=== PATIENT | male | born 1970 | race Caucasian/White ===

== ENCOUNTER 2022-06-22 16:02 | Inpatient (IN) | payer SELFPAY ==
[2022-06-22] VITALS (7 sets, daily range): BP systolic 111–141; BP diastolic 57–89; PULSE 90–104; RESP 14–20; TEMP 36.7; O2SAT 90–94; BMI 27.0
[2022-06-22 16:58] LABS: Basophils % 0.3 %; Hematocrit 48.8 % (42.0-52.0); Hemoglobin 16.3 g/dL (11.7-16.6); Lymphocytes % 11.1 %; Mean Corpuscular HGB Conc 33.4 g/dL (30.0-36.0); Mean Corpuscular Volume 92.8 fl (80-94); Mean Platelet Volume 9.7 fL (7.4-10.4); Monocytes # 0.6 10^3/uL (0.2-0.9); Monocytes % 6.3 %; Neutrophils % 82.2 %; Nucleated Red Blood Cells % 0 %; Platelet Count 278 10^3/cmm (130-400); Red Blood Count 5.26 10^6/uL (4.1-5.3); Red Cell Distribution Width 13.5 % (12.1-15.1); White Blood Count 8.8 10^3/uL (4.0-10.0)
[2022-06-22 17:17] LABS: Alanine Aminotransferase 17 U/L (0-41); Albumin Level 4.4 g/dL (3.5-5.2); Alkaline Phosphatase 81 U/L (40-130); Anion Gap 15.6 (5-19); Aspartate Amino Transferase 13 U/L (0-40); Blood Urea Nitrogen 16 mg/dL (6-20); Calcium 9.1 mg/dL (8.5-10.5); Carbon Dioxide 24 mmol/L (22-29); Chloride 97 mmol/L (98-107); Globulin 3.3 g/dL (1.3-4.6); Glomerular Filtration Rate 77.9 mL/min (90-130); Glucose 140 mg/dL (65-115); Lipase 19 U/L (13-60); Osmolality Calculated 277 mOsm/kg (285-295); Potassium 4.6 mmol/L (3.5-5.1); Sodium 132 mmol/L (136-145); Total Bilirubin 0.5 mg/dL (0.15-1.2); Total Protein 7.7 g/dL (6.6-8.7)
--- NOTE | 2022-06-22 17:47 | XRR_ITS ---
PROCEDURE INFORMATION: Exam: XR Abdomen Exam date and time: 06/22/2022 6:17 PM Age: 52 years old Clinical indication: Abdominal pain; Generalized; Additional info: Constipation TECHNIQUE: Imaging protocol: Radiologic exam of the abdomen. Views: Frontal supine view of the abdomen. 1 View. COMPARISON: No relevant prior studies available. FINDINGS: Gastrointestinal tract: Increased fecal content in the colon. Nonobstructive bowel gas pattern. Intraperitoneal space: No free intraperitoneal air. Organs: No organomegaly. Bones/joints: Unremarkable. XR/XR KUB [id number] IMPRESSION: 1. Nonobstructed bowel gas pattern. 2. Increased fecal content in the colon.
--- NOTE | 2022-06-22 20:44 | ED_ITS ---
HPI - Abdominal Pain General: Chief Complaint: Abdominal Pain Stated Complaint: n/v, constipation Time Seen by Provider: 06/22/22 20:39 Source: patient Mode of arrival: ambulatory Limitations: no limitations History of Present Illness: 52-year-old male states he has been having abdominal pain since last night he states it is mainly suprapubic he states he been having hard time urinating as well and has had some constipation. States he woke up this morning at 3 AM with worsening pain along with vomiting throughout the day. He states he still feels like he cannot urinate and having severe pain in the suprapubic region he rates a 9 out of 10. Denies any fevers denies any worsening improving factors. Associated Symptoms: Reports constipation, nausea and vomiting; Denies chills, diarrhea and fever(s) Review of Systems Const: Denies: fever(s), chills, body aches or change in appetite Eyes: Denies: eye discomfort ENMT: Denies: throat pain or dental pain Card: Denies: chest pain Resp: Denies: dyspnea GI: Reports: abdominal pain, nausea, vomiting and constipation; Denies: diarrhea : Reports: difficulty urinating Musc: Denies: neck pain or back pain Skin/Breast: Denies: rash Neuro: Denies: headache(s) Psych: Denies: depression PFSH ED PFSH: Medical History (Updated 06/22/22 @ 22:55 by Viri Massey MD) No pertinent past medical history Social History (Updated 06/22/22 @ 20:46 by Viri Massey MD) Substance/Drug Use: never Physical Exam Const: COMMON NORMALS: no acute distress, patient oriented x3 and healthy appearing HENMT: COMMON NORMALS: normocephalic HEAD & SCALP: normocephalic Eye: COMMON NORMALS: conjunctivae normal CONJUNCTIVA: Yes conjunctivae normal Neck/C-Spine: COMMON NORMALS: supple Chest: COMMONS NORMALS: normal inspection of the chest and normal palpation of entire chest wall Resp: COMMON NORMALS: normal respiratory effort, No retractions, No use of accessory muscles and clear to auscultation bilaterally AUSCULTATION: clear to auscultation bilaterally Cardio: COMMON NORMALS: regular rate, regular rhythm and No murmurs present (Cardio) RATE: regular rate RHYTHM: regular rhythm GI: COMMON NORMALS: Normal to inspection, nondistended, normoactive bowel sounds present, Soft to palpation and no masses PALPATION: Yes Soft to palpation OTHER: Suprapubic tenderness Extremity: COMMON NORMALS: normal to inspection and full ROM Neuro: COMMON NORMALS: patient oriented x3, moves all extremities and no focal motor deficits Psych: COMMON NORMALS: mental status grossly normal, Normal thought process present and cooperative THOUGHT PROCESS: Normal thought process present Skin: COMMON NORMALS: no rashes or lesions noted and no wounds GENERAL SKIN EXAM: no rashes or lesions noted Course Vital Signs: Vital signs: Vital Signs Temperature 98.1 F 06/22/22 16:08 Pulse Rate 90 06/22/22 21:45 Respiratory Rate 18 06/22/22 21:23 Blood Pressure 125/83 06/22/22 21:45 Pulse Oximetry 93 06/22/22 21:45 Oxygen Delivery Me thod Room Air 06/22/22 21:45 MDM - Abdominal Pain Medical Decision Making Patient presents with abdominal pain and CT does show a cecal mass that is causing obstruction to his appendix with appendicitis with an abscess he has no free air in his abdomen does have a small possible localized perforation his white count has been normal has been afebrile I spoke to the surgeon on-call Dr. Benton with plans to admit on IV antibiotics likely have surgery in the morning. He has been stable on the ER. Lab Data 06/22/22 16:45 06/22/22 16:45 Labs/Radiology: Radiology Impressions KUB X-Ray 06/22/22 17:47 IMPRESSION: 1. Nonobstructed bowel gas pattern. 2. Increased fecal content in the colon. Abdomen/Pelvis CT 06/22/22 21:17 IMPRESSION: 1. 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 The cecal mass obstructs the appendiceal orifice with resulting marked appendicitis and associated suspicious for perforation of the anterior wall of the appendix at the appendiceal base with an adjacent developing multilobulated abscess in the right lower quadrant. No free intraperitoneal air. 2. Marked secondary inflammation of multiple small bowel loops/mesentery in the right lower quadrant. 3. Hypodense focus in the liver that cannot be further characterized on the current examination. In a low-risk patient, this is most likely to be benign and no further follow-up is recommended. In a high-risk patient, follow-up MRI in 3-6 months is recommended (or earlier if warranted by the patient's specific clinical circumstances). (Reference: Leonila) 4. Incidental/nonacute findings are listed in the report. COMMENTS: Consistent with the [employer]'s Incidental Findings Committee white paper (J Am Shalini Radiol 2018): Any incidental renal lesion less than 1 cm or classified as too small to characterize, or any incidental cystic renal lesion characterized as simple-appearing, is likely benign. No follow-up imaging is recommended for these lesions per consensus recommendations based on imaging criteria. REFERENCES: Leonila GARCIA, et al. Management of Incidental Liver Lesions on CT: A White Paper of the ACR Incidental Findings Committee. J Am Shalini Radiol. 2017;14(11):1857-7721. ADDENDUM: 06/22/22 2247 THIS REPORT CONTAINS FINDINGS THAT MAY BE CRITICAL TO PATIENT CARE. The findings were verbally communicated via telephone conference with VIRI Torres at 10:40 PM CDT on 06/22/2022. The findings were acknowledged and understood. Laboratory Results WBC 8.8 10^3/uL (4.0-10.0) 06/22/22 16:45 RBC 5.26 10^6/uL (4.1-5.3) 06/22/22 16:45 Hgb 16.3 g/dL (11.7-16.6) 06/22/22 16:45 Hct 48.8 % (42.0-52.0) 06/22/22 16:45 MCV 92.8 fl (80-94) 06/22/22 16:45 MCH 31.0 pg (28.0-34.0) 06/22/22 16:45 MCHC 33.4 g/dL (30.0-36.0) 06/22/22 16:45 RDW 13.5 % (12.1-15.1) 06/22/22 16:45 Plt Count 278 10^3/cmm (130-400) 06/22/22 16:45 MPV 9.7 fL (7.4-10.4) 06/22/22 16:45 Neut % (Auto) 82.2 % 06/22/22 16:45 Lymph % (Auto) 11.1 % 06/22/22 16:45 [place] % (Auto) 6.3 % 06/22/22 16:45 Eos % (Auto) 0.0 % 06/22/22 16:45 Baso % (Auto) 0.3 % 06/22/22 16:45 Neut # (Auto) 7.20 10^3/uL (1.8-7.7) 06/22/22 16:45 Lymph # (Auto) 1.0 10^3/uL (0.8-4.8) 06/22/22 16:45 [place] # (Auto) 0.6 10^3/uL (0.2-0.9) 06/22/22 16:45 Eos # (Auto) 0.0 10^3/uL (0.0-0.8) 06/22/22 16:45 Baso # (Auto) 0.0 10^3/uL (0.0-0.1) 06/22/22 16:45 Nucleated RBC % (auto) 0 % 06/22/22 16:45 Nucleated RBCs # 0.0 /100WBC 06/22/22 16:45 Sodium 132 mmol/L (136-145) L 06/22/22 16:45 Potassium 4.6 mmol/L (3.5-5.1) 06/22/22 16:45 Chloride 97 mmol/L (98-107) L 06/22/22 16:45 Carbon Dioxide 24 mmol/L (22-29) 06/22/22 16:45 Anion Gap 15.6 (5-19) 06/22/22 16:45 BUN 16 mg/dL (6-20) 06/22/22 16:45 Creatinine 1.0 mg/dL (0.7-1.2) 06/22/22 16:45 GFR Calculation 77.9 mL/min (90-130) L 06/22/22 16:45 Glucose 140 mg/dL (65-115) H 06/22/22 16:45 Calculated Osmolality 277 mOsm/kg (285-295) L 06/22/22 16:45 Calcium 9.1 mg/dL (8.5-10.5) 06/22/22 16:45 Total Bilirubin 0.5 mg/dL (0.15-1.2) 06/22/22 16:45 AST 13 U/L (0-40) 06/22/22 16:45 ALT 17 U/L (0-41) 06/22/22 16:45 Alkaline Phosphatase 81 U/L (40-130) 06/22/22 16:45 Total Protein 7.7 g/dL (6.6-8.7) 06/22/22 16:45 Albumin 4.4 g/dL (3.5-5.2) 06/22/22 16:45 Globulin 3.3 g/dL (1.3-4.6) 06/22/22 16:45 Lipase 19 U/L (13-60) 06/22/22 16:45 Urine Color Yellow (Yellow) 06/22/22 21:00 Urine Appearance Clear (CLEAR) 06/22/22 21:00 Urine pH 5 (5-7) 06/22/22 21:00 Ur Specific [place] 1.025 (1.005-1.030) 06/22/22 21:00 Urine Protein Neg (Negative) 06/22/22 21:00 Urine Glucose (UA) Norm (Normal) 06/22/22 21:00 Urine Ketones 2+ (Negative) H 06/22/22 21:00 Urine Blood 2+ (Negative) H 06/22/22 21:00 Urine Nitrate Negative (Negative) 06/22/22 21:00 Urine Bilirubin 1+ (Negative) H 06/22/22 21:00 Urine Urobilinogen Norm mg/dL (Negative) 06/22/22 21:00 Ur Leukocyte Esterase Negative (Negative) 06/22/22 21:00 Urine RBC 0-4 /hpf (0-2) H 06/22/22 21:00 Urine WBC 5-10 /hpf (0-5) H 06/22/22 21:00 Ur Squamous Epith Cells 0-4 /hpf (0-5) H 06/22/22 21:00 Amorphous Sediment Not Reportable 06/22/22 21:00 Urine Bacteria Trace /hpf (NONE) 06/22/22 21:00 Urine Mucus 1+ /hpf 06/22/22 21:00 Discharge Plan Discharge Patient Disposition: Admitted As Inpatient Clinical Impression: Acute appendicitis, Mass of cecum Coding Level of Care Code ED [employer] Producer for Britton Ceron
[2022-06-22] MEDS: ondansetron 2 mg/ML SDV 2 mL 4 MG IVP (21:03)
[2022-06-22] MEDS: sodium chloride 0.9% 1,000 ML 999 ML IV (21:04)
--- NOTE | 2022-06-22 21:17 | CTR_ITS ---
PROCEDURE INFORMATION: Exam: CT Abdomen And Pelvis With Contrast Exam date and time: 06/22/2022 10:00 PM Age: 52 years old Clinical indication: Abdominal pain; Generalized; Patient HX: C/O diffuse abd pain with constipation. TECHNIQUE: Imaging protocol: Computed tomography of the abdomen and pelvis with contrast. Sagittal and coronal reformatted images were created and reviewed. Radiation optimization: All CT scans at this facility use at least one of these dose optimization techniques: automated exposure control; mA and/or kV adjustment per patient size (includes targeted exams where dose is matched to clinical indication); or iterative reconstruction. Contrast material: OMNI 350; Contrast volume: 100 ml; Contrast route: INTRAVENOUS (IV); REPORTING DATA: Count of CT and Cardiac NM exams in prior 12 months: This patient has received 0 known CTs and 0 known cardiac nuclear medicine studies in the 12 months prior to the current study. COMPARISON: CR (ABDOMEN, ) 06/22/2022 6:17 PM RADIATION DOSE METRICS: Total DLP (mGy-cm): 921.63 FINDINGS: Lungs: Visualized lungs are clear. Pleural spaces: No pleural effusion. Heart: Visualized portions of the heart are unremarkable. Liver: Hypodense focus in the liver that cannot be further characterized on the current examination. This measures 6.2 mm (series 3, image 18). Gallbladder and bile ducts: The gallbladder is unremarkable. No biliary ductal dilatation. Pancreas: The pancreas is unremarkable. No pancreatic ductal dilatation. Spleen: The spleen is unremarkable. Adrenal glands: The right and left adrenal glands are unremarkable. Kidneys and ureters: Subcentimeter hypodense foci in both right and left kidneys that are too small to characterize, however likely represent small cysts. Simple cyst in the right kidney measuring 1.3 cm (series 3, image 35). The right and left ureters are unremarkable. Stomach and bowel: Irregular cecal mass measuring 4.7 x 3.9 x 4.9 cm (series 6, image 47, series 3, image 64 and series 5, image 19). The cecal mass also obstructs the appendiceal orifice. The appendix is markedly dilated, measuring 2.2 cm (series 3, image 72). The appendix is fluid-filled with thickening and enhancement of the wall of the appendix. Extensive periappendiceal inflammation and large amount of periappendiceal fluid. Focal decreased density of the appendiceal wall at the anterior base of the appendix (series 5, images 16-19). Partially loculated fluid collection anterior to the cecum and extending into the anterior right lower quadrant mesentery measures 9.9 x 2.5 x 5.6 cm (series 5, image 15, series 6, image 50, in series 3, image 70). Findings raise suspicion for perforation of the base of the appendix. secondary inflammation of multiple small bowel loops/mesentery in the right lower quadrant. Appendix: See under stomach and bowel . Intraperitoneal space: No free intraperitoneal air. See also under stomach and bowel . Vasculature: Minimal atherosclerotic changes in the visualized arteries. No evidence for aortic aneurysm or aortic dissection. Hepatic veins, portal veins, splenic vein, superior mesenteric vein, renal veins, and inferior vena cava are patent. Lymph nodes: No lymphadenopathy. Urinary bladder: The bladder is incompletely filled, which can limit evaluation. No focal abnormality in the bladder however. Reproductive: Unremarkable as visualized. Bones/joints: No acute fracture. Soft tissues: No acute abnormality in the extra-abdominal soft tissues. CT/CT abdomen pelvis w con* [id number] IMPRESSION: 1. 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 The cecal mass obstructs the appendiceal orifice with resulting marked appendicitis and associated suspicious for perforation of the anterior wall of the appendix at the appendiceal base with an adjacent developing multilobulated abscess in the right lower quadrant. No free intraperitoneal air. 2. Marked secondary inflammation of multiple small bowel loops/mesentery in the right lower quadrant. 3. Hypodense focus in the liver that cannot be further characterized on the current examination. In a low-risk patient, this is most likely to be benign and no further follow-up is recommended. In a high-risk patient, follow-up MRI in 3-6 months is recommended (or earlier if warranted by the patient's specific clinical circumstances). (Reference: Leonila) 4. Incidental/nonacute findings are listed in the report. COMMENTS: Consistent with the [employer]'s Incidental Findings Committee white paper (J Am Shalini Radiol 2018): Any incidental renal lesion less than 1 cm or classified as too small to characterize, or any incidental cystic renal lesion characterized as simple-appearing, is likely benign. No follow-up imaging is recommended for these lesions per consensus recommendations based on imaging criteria. REFERENCES: Leonila GARCIA, et al. Management of Incidental Liver Lesions on CT: A White Paper of the ACR Incidental Findings Committee. J Am Shalini Radiol. 2017;14(11):1026-0211.
[2022-06-22] MEDS: morphine 4 mg/mL SDV 1 mL IVP (21:23)
[2022-06-22 21:26] LABS: Urine Appearance Clear (CLEAR); Urine Color Yellow (Yellow)
[2022-06-22 21:27] LABS: Add Urine Culture? No; Add Urine Microscopic? YES; Bacteria Urine TRACE /hpf; Bilirubin Urine 1+ (Negative); Blood Urine 2+ (Negative); Glucose Urine UA Norm (Normal); Ketones Urine 2+ (Negative); Leukocyte Esterase Urine Negative (Negative); Mucus Urine 1+ /hpf; Nitrate Urine Negative (Negative); Protein Urine Neg (Negative); RBC Urine 0-4 /hpf (0-2); Specific Gravity, Urine 1.025 (1.005-1.030); Squamous Epithelial Cell Urine 0-4 /hpf (0-5); Urobilinogen Urine Norm (Negative); pH Urine 5 (5-7)
[2022-06-22] MEDS: iohexol 350 mg/mL 500 mL Btl (per mL) IV (22:02)
[2022-06-22] MEDS: HYDROmorphone 1 mg/mL INJ 1 mL IVP (22:54)
[2022-06-22] MEDS: piperacillin-tazobactam 3.375 GM in sodium chloride 0.9% (plus) 50 ML IV (22:56)
[2022-06-22 23:08] LABS: Lactate (Lactic Acid level) 1.6 mmol/L (0.5-2.2)
[2022-06-23] VITALS (21 sets, daily range): BP systolic 101–152; BP diastolic 63–89; PULSE 74–97; RESP 12–20; TEMP 36.2–37.6; O2SAT 89–97
[2022-06-23] MEDS: sodium chloride 0.9% 1,000 ML 75 ML IV (00:21)
[2022-06-23] MEDS: morphine 4 mg/mL SDV 1 mL IVP ×2 (00:26→04:34)
[2022-06-23] MEDS: ondansetron 2 mg/ML SDV 2 mL 4 MG IVP (01:06)
[2022-06-23 05:52] LABS: Hematocrit 43.5 % (42.0-52.0); Hemoglobin 14.5 g/dL (11.7-16.6); Mean Corpuscular HGB Conc 33.3 g/dL (30.0-36.0); Mean Corpuscular Hemoglobin 31.1 pg (28.0-34.0); Mean Corpuscular Volume 93.3 fl (80-94); Platelet Count 207 10^3/cmm (130-400); Red Blood Count 4.66 10^6/uL (4.1-5.3); Red Cell Distribution Width 13.7 % (12.1-15.1); White Blood Count 6.9 10^3/uL (4.0-10.0)
[2022-06-23] MEDS: piperacillin-tazobactam 3.375 GM in sodium chloride 0.9% (plus) 50 ML IV ×3 (06:27→23:21)
[2022-06-23 07:11] LABS: Absolute Segmented Neutrophil 2.6 10/cmm (1.6-7.1); Band Neutrophils Absolute 2.5 10^3/cmm (0.0-1.2); Lymphocytes 18 %; Monocytes Absolute 0.6 10^3/cmm (0.1-0.6); Segmented Neutrophils 37 %; Slide Review Slide Review Perform; Total Cells Counted 100 (0-100)
[2022-06-23 07:12] LABS: Eosinophils 0 %; Lymphocytes Absolute 1.2 10^3/cmm (1.2-3.4); Platelet Estimate Normal (Normal)
--- NOTE | 2022-06-23 07:18 | P.HP_ITS ---
Providers/Chief Complaint Admitting Physician: Kyle Benton DO Chief Complaint: n/v, constipation History of Present Illness Roni Salguero is a 52 year old male who presents to the hospital with a 2- day history of diffuse abdominal pain. He reports that his abdominal pain is all over but worse in the right lower quadrant. He reports that he has been constipated for several days. He reports fevers yesterday. Palpation makes his abdominal pain worse. Nothing makes his abdominal pain better. He denies any hematochezia and/or melena. CT of the abdomen pelvis reveals a large cecal mass with appendiceal perforation and abscess. There is also a mass in the liver which cannot be characterized. Review of Systems General: Reports: 10 or more systems reviewed and unremarkable except in HPI and below Medications/Allergies Allergies Allergy/AdvReac Type Severity Reaction Status Date / Time No Known Allergies Allergy Verified 06/22/22 16:12 PFSH Acute PFSH: Medical History No pertinent past medical history Social History Substance/Drug Use: never Vitals/I&O/Wt Last Vital Signs Temp 98.8 F 06/23/22 04:00 Pulse 88 06/23/22 04:00 Resp 16 06/23/22 04:34 BP 107/74 06/23/22 04:00 Pulse Ox 95 06/23/22 04:00 O2 Del Method Nasal Cannula 06/23/22 04:00 O2 Flow Rate 2 06/23/22 04:00 06/22/22 06/23/22 06/23/22 22:59 06:59 14:59 Intake Total 1050 / 1050 Output Total 300 / 300 Balance 750 / 750 Weight last 48 hrs Weight 216 lb Physical Exam Narrative: General : Patient is well developed , no acute distress, oriented x3 Head : Normal cephalic, a-traumatic. Ears : Pinnae and external canal are normal. Hearing is normal. Eyes : PERRLA, Sclera and injection are normal. No conjunctival discharge. Nose : Mucous membranes are without erythema. Throat : buccal mucosa is normal, gums are without significant recession or hypertrophy. Lungs : Equal chest rise bilaterally, no use of accessory muscles, trachea is midline. Cor : Rate and rhythm are normal. Abdomen : Soft, diffusely tender to palpation distended, some guarding present, negative rebound Extremities : No edema, no cyanosis or clubbing, dorsalis pedis pulses are present bilaterally, non-tender to palpation of calves. Upper extremities are normal bilaterally. Back : non-tender to palpation, no CVA tenderness. Neuro : CN II - XII intact, Upper and lower extremities have equal and full strength Urinary Catheter Management: Lee: Cath Placed During This Visit: yes, but has since been removed by the nurse Reason for Continuing Indwelling Catheter: Other Urinary Catheter Date of Insertion: 06/22/22 Urinary Catheter Time of Insertion: 21:06 Date Urinary Catheter Removed: 06/22/22 Time Urinary Catheter Discontinued: 21:30 Data 06/23/22 05:14 06/22/22 16:45 A&P Assessment and plan (1) Mass of cecum: (2) Acute perforated appendicitis: (3) Liver mass: Plan To OR for exploratory laparotomy with right hemicolectomy The risks and benefits of the procedure, including but not limited to, bleeding, infection, damage surrounding structures, scar, numbness, pain, possible need for a ostomy, anastomotic leak, were explained to the patient. He is understanding of the risks and wishes to proceed Attestations Medical Necessity Statement*: Patient will require multiple nights in the hospital following exploratory laparotomy with right hemicolectomy for cecal mass with perforated appendicitis Coding Level of Care Code Acute Code for Chg Fwd Diagnoses Mass of cecum K63.89 Acute perforated appendicitis K35.32 Liver mass R16.0
--- NOTE | 2022-06-23 09:12 | PC.PHAR ---
pt is in surgery per operating room aide on [facility]
--- NOTE | 2022-06-23 09:23 | P.ANESASSM_ITS ---
Pre-Anesthetic Assessment Height/Weight: Height 1.91 m Weight 97.976 kg Temp Pulse Resp BP Pulse Ox O2 Del Method O2 Flow Rate 98.3 F 88 18 117/74 91 Room Air 2 06/23/22 07:26 06/23/22 07:26 06/23/22 07:26 06/23/22 07:26 06/23/22 07:26 06/23/22 07:26 06/23/22 07:26 Operation Date: 06/23/22 08:25 Proposed Procedures p Exploratory Laparotomy(Not Applicable) - Kyle Benton DO Familial anesthetic complications: none Was Beta Sandeep taken within 24 hours: N/A Was Clonidine taken within 24 hours: N/A Social Tobacco and No alcohol Exam alert, oriented x 3 and regular rate & rhythm Airway Submandibular: within normal limits Cervical ROM: within normal limits Mallampati: Class II Dentition: false Pulmonary Chronic Obstructive Pulmonary Disease GI appe, cecal mall? Anesthetic Plan ASA status: 3 Anesthesia: General Medications/Allergies Allergies Allergy/AdvReac Type Severity Reaction Status Date / Time No Known Allergies Allergy Verified 06/22/22 16:12 Current Medications Generic Name Dose Route Start Last Admin Trade Name Freq PRN Reason Stop Dose Admin Sodium Chloride 1,000 mls @ 75 mls/hr 06/22/22 23:00 06/23/22 00:21 Sodium Chloride 0.9% IV 75 mls/hr .[id number] BECCA Administration Piperacillin Sod/Tazobactam 50 mls @ 12.5 mls/hr 06/23/22 07:00 06/23/22 06:27 Sod 3.375 gm/ Sodium Chloride IV 12.5 mls/hr Q8H BECCA Administration Protocol Morphine Sulfate 4 mg 06/23/22 00:06 06/23/22 04:34 Morphine 4 Mg/Ml Sdv 1 Ml IVP 4 mg Q4H PRN Administration SEVERE PAIN Ondansetron HCl 4 mg 06/23/22 00:06 06/23/22 01:06 Ondansetron 2 Mg/Ml Sdv 2 Ml IVP 4 mg Q6H PRN Administration NAUSEA AND VOMITING PFSH Anesthesia Medical History No pertinent past medical history Social History Substance/Drug Use: never Data Anesthesia 06/23/22 05:14 06/22/22 16:45 Short CBC 06/22/22 06/23/22 Range/Units 16:45 05:14 WBC 8.8 6.9 (4.0-10.0) 10^3/uL Hgb 16.3 14.5 (11.7-16.6) g/dL Hct 48.8 43.5 (42.0-52.0) % MCV 92.8 93.3 (80-94) fl Plt Count 278 207 (130-400) 10^3/cmm Neut % (Auto) 82.2 % Neut # (Auto) 7.20 (1.8-7.7) 10^3/uL BMP 06/22/22 16:45 Sodium 132 L Potassium 4.6 Chloride 97 L Carbon Dioxide 24 BUN 16 Creatinine 1.0 Glucose 140 H Calcium 9.1 Liver Function 06/22/22 Range/Units 16:45 Total Bilirubin 0.5 (0.15-1.2) mg/dL AST 13 (0-40) U/L ALT 17 (0-41) U/L Alkaline Phosphatase 81 (40-130) U/L Albumin 4.4 (3.5-5.2) g/dL Urine 06/22/22 Range/Units 21:00 Urine Color Yellow (Yellow) Urine Appearance Clear (CLEAR) Urine pH 5 (5-7) Ur Specific [place] 1.025 (1.005-1.030) Urine Protein Neg (Negative) Urine Glucose (UA) Norm (Normal) Urine Ketones 2+ H (Negative) Urine Nitrate Negative (Negative) Urine Bilirubin 1+ H (Negative) Ur Leukocyte Esterase Negative (Negative) Urine RBC 0-4 H (0-2) /hpf Urine WBC 5-10 H (0-5) /hpf Cardiac Studies: No Data to Display
--- NOTE | 2022-06-23 10:36 | PC.CHAP ---
Pastoral Care Encounter/Spiritual Assessment Type of Contact [] Declined infantryman visit [] Patient/Family/Request visit [] Outpatient visit [] Follow-up visit [] Physician referral [] Code/Alert [x] Routine visit [] Staff referral [] Actively dying [] Patient sleeping [x] Family support [] [] Out of room [] Palliative care [] [] Receiving care in room [] Pre-surgical visit [] Trauma [] Long length of stay [] ICU visit [] Other: Relational/Emotional Strength [x] Patient feels connected with others/family/visitors/staff [] Distress [] Loneliness/isolation [] Abandonment Spirituality of Patient [x] Person of [place]tagracia [x] Attends Jewish of their [place] [x] Believes in Prayer [x] Reads Bible or Congregation materials [] There are Spiritual issues to be addressed Trap Operator Interventions [x] Prayer [] Active listening [] Non-anxious presence [x] Spiritual/emotional support [] Crisis/trauma care [] Spiritual counseling [] Bereavement support [] Provided bereavement packet [] Provided Bible/devotional materials [] Provided toy/stuffed animal, coloring book to patient or family member [] Provided Communion [] Anointing/[place] [] Salvation [x] Completed spiritual assessment [] Other: Impact on Illness or Injury [] Angry [] Fearful [] Anxious [] Often cries [] Exhaustion [] Unable to work [] Unable to attend sabianist [] Unable to walk/stand [] Unable to read [] Unable to drive [] Unable to eat/drink [] Unable to sleep [] Unable to be with family [] Patient intubated [] Other: Summary Time spent with patient 10 min
--- NOTE | 2022-06-23 10:42 | PM.OP ---
Operative Report Date of procedure: June 23, 2022 Pre-op diagnosis: Cecal mass Acute perforated appendicitis Post-op diagnosis: same Procedure done: Exploratory laparotomy with right hemicolectomy Implants: 19 [place] drain into right colic gutter and pelvis Specimens removed/disposition: Right colon and terminal ileum Surgeon: Dr. Kyle Benton DO Anesthesia: General Estimated blood loss (mL): 100 Complications: None apparent Brief History: This is a very pleasant 52-year-old gentleman who presented to the hospital with a 2-day history of abdominal pain. CT abdomen and pelvis revealed a large cecal mass with a perforated appendicitis. There is also a liver mass which is hard to define. Exploratory laparotomy with right hemicolectomy was indicated. The risk and benefits were explained and documented. Procedure: Patient was wheeled in the OR room and placed on the OR table in the supine position. The abdomen was inspected prepped and draped in usual sterile fashion. A timeout was performed. All present were in agreement. General endotracheal intubation was achieved by department of anesthesia. A 10 blade scalpel was then used to make a midline laparotomy from the pubic symphysis to the xiphoid. Dissection was carried down to the fascia with Bovie cautery. The fascia was opened and the Bookwalter was put in place. The right lower quadrant had significant purulence which was suctioned. There was a very large appendix and right colon dilatation with overlying fibrinous exudate. The right white line of Toldt was taken down bluntly and sharply with Bovie cautery. Andrade's bands were taken down with Enseal. Dissection was carried around the hepatic flexure with Bovie cautery and Enseal. A small window was made in the mesentery just proximal to the middle colic artery. The terminal ileum was then brought up to this area and a small window was made in the mesentery. A [id number] functional end-to-end anastomosis was created with a CHRISTINA 100 blue load stapler with 2 loads. Mesentery was then transected across the right colic artery. The right colon with appendix and terminal ileum were then passed off as specimen. Loculations and adhesions from the perforation were bluntly with finger fracking. The abdomen was then irrigated with 2 L of normal saline. Hemostasis was noted. Blood loss was approximately 100 cc. A 19 [place] drain was then placed into the right colic gutter and pelvis coming out of the left lower quadrant and sewn into place with 3-0 silk. The NG tube was confirmed to be in place. The laparotomy incision was then closed at the fascia with running #1 PDS x2. Skin was closed with az. Sterile dressings were applied. Patient tolerated procedure well.
[2022-06-23] MEDS: ketorolac 30 mg/mL INJ IVP ×2 (14:45→20:51)
--- NOTE | 2022-06-23 14:46 | ANE.PACU2 ---
Inpatient post-anesthesia follow up: Airway intact: Yes Vital signs: Temperature 97.8 F Pulse Rate 77 Respiratory Rate 15 Blood Pressure 108/63 Pulse Oximetry 90 Oxygen Delivery Me thod Room Air Oxygen Flow Rate 6 Fraction of Inspir ed Oxygen Hydration adequate: Yes Nausea and vomiting: No Pain level: 4 Mental status: Baseline
[2022-06-23] MEDS: sodium chloride 0.9% 1,000 ML 125 ML IV ×2 (15:13→20:50)
--- NOTE | 2022-06-23 22:18 | XRR_ITS ---
PROCEDURE INFORMATION: Exam: XR Chest Exam date and time: 06/23/2022 9:27 PM Age: 52 years old Clinical indication: Device placement; Ng tube; Prior surgery; Surgery date: 6+ months; Surgery type: Abd surgery; Additional info: Ngt placement. TECHNIQUE: Imaging protocol: Radiologic exam of the chest. Views: 1 view. COMPARISON: CT abdomen pelvis w con* [id number] 06/22/2022 10:00 PM FINDINGS: Tubes, catheters and devices: Gastric tube placement with tip in the mid stomach. Lungs: Unremarkable. No consolidation. Pleural spaces: Unremarkable. No pleural effusion. No pneumothorax. Heart/Mediastinum: Unremarkable. No cardiomegaly. Bones/joints: Unremarkable. Soft tissues: Laparotomy skin az. XR/XR chest 1V portable [id number] IMPRESSION: 1. Gastric tube tip in the mid stomach. 2. No acute findings.
--- NOTE | 2022-06-23 22:24 | PC.NURSE ---
Pt's family came running to the nurses station stating the pt was choking. This nurse ran to the pt room. Pt sitting up in bed, states he think that his NG tube has migrated causing him to choke. Per protocol CXR ordered stat to check for placement. Radiology notified.
[2022-06-24] VITALS (7 sets, daily range): BP systolic 104–125; BP diastolic 67–74; PULSE 65–75; RESP 16–18; TEMP 36.3–37.1; O2SAT 89–96
[2022-06-24] MEDS: ketorolac 30 mg/mL INJ IVP ×4 (03:22→22:04)
[2022-06-24 04:54] LABS: Basophils % 0.2 %; Hematocrit 37.6 % (42.0-52.0); Hemoglobin 12.4 g/dL (11.7-16.6); Lymphocytes % 11.8 %; Mean Corpuscular Hemoglobin 31.2 pg (28.0-34.0); Mean Corpuscular Volume 94.5 fl (80-94); Mean Platelet Volume 9.7 fL (7.4-10.4); Monocytes # 0.7 10^3/uL (0.2-0.9); Monocytes % 8.8 %; Neutrophils # 6.44 10^3/uL (1.8-7.7); Nucleated Red Blood Cells % 0 %; Platelet Count 202 10^3/cmm (130-400); Red Blood Count 3.98 10^6/uL (4.1-5.3); Red Cell Distribution Width 13.5 % (12.1-15.1); White Blood Count 8.2 10^3/uL (4.0-10.0)
[2022-06-24 05:11] LABS: Anion Gap 14.2 (5-19); Blood Urea Nitrogen 24 mg/dL (6-20); Calcium 7.8 mg/dL (8.5-10.5); Carbon Dioxide 26 mmol/L (22-29); Chloride 99 mmol/L (98-107); Glomerular Filtration Rate 63.1 mL/min (90-130); Glucose 103 mg/dL (65-115); Magnesium 2.4 mg/dL (1.7-2.3); Osmolality Calculated 284 mOsm/kg (285-295); Potassium 4.2 mmol/L (3.5-5.1); Sodium 135 mmol/L (136-145)
[2022-06-24 05:30] LABS: Slide Review Slide Review Perform
[2022-06-24] MEDS: heparin 5,000 unit/mL INJ 1 mL 5000 UNIT SUBCUT ×2 (05:49→18:17)
[2022-06-24] MEDS: piperacillin-tazobactam 3.375 GM in sodium chloride 0.9% (plus) 50 ML IV ×3 (05:50→22:09)
[2022-06-24] MEDS: sodium chloride 0.9% 1,000 ML 125 ML IV ×3 (05:50→22:09)
[2022-06-24] MEDS: ondansetron 2 mg/ML SDV 2 mL 4 MG IVP ×3 (14:13→22:17)
--- NOTE | 2022-06-24 17:41 | PM.PN ---
Subjective Subjective: Patient seen and examined. Pain controlled. He is pulling 1500 on the incentive spirometer. Still no flatus. Vitals/I&O/Wt Last Vital Signs Temp 98.2 F 06/24/22 16:58 Pulse 73 06/24/22 16:58 Resp 17 06/24/22 16:58 BP 122/71 06/24/22 16:58 Pulse Ox 91 06/24/22 16:58 O2 Del Method Room Air 06/24/22 16:58 O2 Flow Rate 6 06/23/22 11:10 06/24/22 06/24/22 06/24/22 06:59 14:59 22:59 Intake Total 860.417 / 3972.500 1050 / 1050 Output Total 1045 / 1615 Balance -184.583 / 2357.500 1050 / 1050 Physical Exam Narrative: General: No acute distress, awake alert and oriented x3 Abdomen: Soft, mildly distended, appropriately tender to palpation, no guarding rebound or masses Dressings clean dry and intact Drain serosanguineous Urinary Catheter Management: Lee: Cath Placed During This Visit: yes, but has since been removed by the nurse Reason for Continuing Indwelling Catheter: Other Urinary Catheter Date of Insertion: 06/23/22 Urinary Catheter Time of Insertion: 09:40 Date Urinary Catheter Removed: 06/22/22 Time Urinary Catheter Discontinued: 21:30 Data 06/24/22 04:44 06/24/22 04:44 A&P Assessment and plan (1) Mass of cecum: (2) Acute perforated appendicitis: (3) Liver mass: Plan Postoperative day #1 status post exploratory laparotomy with right hemicolectomy IV fluids Antibiotics N.p.o./NG tube to LIWS I-S use Await return of bowel function Ambulate Attestations Medical Necessity Statement*: Patient requires multiple more nights in the hospital for recovery after right hemicolectomy Coding Level of Care Code Acute Code for Chg Fwd Diagnoses Mass of cecum K63.89 Acute perforated appendicitis K35.32 Liver mass R16.0
[2022-06-25] MEDS: ketorolac 30 mg/mL INJ IVP ×4 (03:06→20:55)
[2022-06-25 03:56] VITALS: BP 118/76; PULSE 70; RESP 18; TEMP 36.6; O2SAT 97
[2022-06-25] MEDS: heparin 5,000 unit/mL INJ 1 mL 5000 UNIT SUBCUT ×2 (05:40→18:15)
--- NOTE | 2022-06-25 05:52 | PC.NURSE ---
This nurse witnessed patient pass gas at 0542, 06/25/22.
[2022-06-25] MEDS: sodium chloride 0.9% 1,000 ML 125 ML IV ×3 (06:07→22:39)
[2022-06-25] MEDS: piperacillin-tazobactam 3.375 GM in sodium chloride 0.9% (plus) 50 ML IV ×3 (06:07→22:39)
[2022-06-25 06:11] LABS: Basophils % 0.1 %; Eosinophils # 0.1 10^3/uL (0.0-0.8); Eosinophils % 1.3 %; Hematocrit 35.6 % (42.0-52.0); Hemoglobin 11.7 g/dL (11.7-16.6); Lymphocytes # 1.1 10^3/uL (0.8-4.8); Lymphocytes % 12.3 %; Mean Corpuscular HGB Conc 32.9 g/dL (30.0-36.0); Mean Corpuscular Hemoglobin 30.7 pg (28.0-34.0); Mean Corpuscular Volume 93.4 fl (80-94); Mean Platelet Volume 9.9 fL (7.4-10.4); Monocytes # 0.7 10^3/uL (0.2-0.9); Monocytes % 8.3 %; Neutrophils # 6.93 10^3/uL (1.8-7.7); Neutrophils % 77.6 %; Nucleated Red Blood Cells % 0 %; Platelet Count 230 10^3/cmm (130-400); Red Blood Count 3.81 10^6/uL (4.1-5.3); Red Cell Distribution Width 13.7 % (12.1-15.1); White Blood Count 8.9 10^3/uL (4.0-10.0)
[2022-06-25 06:29] LABS: Anion Gap 13.8 (5-19); Blood Urea Nitrogen 23 mg/dL (6-20); Calcium 7.7 mg/dL (8.5-10.5); Carbon Dioxide 23 mmol/L (22-29); Chloride 104 mmol/L (98-107); Glomerular Filtration Rate 87.9 mL/min (90-130); Glucose 86 mg/dL (65-115); Magnesium 2.5 mg/dL (1.7-2.3); Osmolality Calculated 287 mOsm/kg (285-295); Potassium 3.8 mmol/L (3.5-5.1); Sodium 137 mmol/L (136-145)
--- NOTE | 2022-06-25 12:22 | PM.PN ---
Subjective Subjective: Patient seen and examined. Still no bowel movement Vitals/I&O/Wt Last Vital Signs Temp 99.6 F 06/26/22 19:43 Pulse 67 06/26/22 19:43 Resp 16 06/26/22 19:43 BP 133/74 06/26/22 19:43 Pulse Ox 92 06/26/22 19:43 O2 Del Method Room Air 06/26/22 19:43 O2 Flow Rate 6 06/23/22 11:10 Physical Exam Narrative: Abdomen soft, appropriately tender, nondistended, no guarding rebound or mass Incision intact without erythema or exudate Urinary Catheter Management: Lee: Cath Placed During This Visit: yes, but has since been removed by the nurse Reason for Continuing Indwelling Catheter: Decision to DC Catheter Urinary Catheter Date of Insertion: 06/23/22 Urinary Catheter Time of Insertion: 09:40 Date Urinary Catheter Removed: 06/25/22 Time Urinary Catheter Discontinued: 17:02 Data 06/26/22 05:05 06/26/22 05:05 A&P Assessment and plan (1) Mass of cecum: (2) Acute perforated appendicitis: (3) Liver mass: Plan Postoperative day #2 status post exploratory laparotomy with right hemicolectomy IV fluids Antibiotics Clear liquids I-S use Await return of bowel function Ambulate Attestations Medical Necessity Statement*: Patient requires at least 1 more night in the hospital for return of bowel function status post right hemicolectomy Coding Level of Care Code Acute Code for Chg Fwd Diagnoses Mass of cecum K63.89 Acute perforated appendicitis K35.32 Liver mass R16.0
--- NOTE | 2022-06-25 16:45 | PC.NURSE ---
Dr. Benton at bedside and removed NG tube with no complications. Dr. Benton removed dressing to midline abdomen. Patient tolerated well. Patient is to shower with wound RESEARCH STUDY ASSISTANT then nursing will apply dressing as ordered. Verbal order received to remove jeter. Jeter removed following aseptic technique. Patient tolered procedure well, catheter intact upon removal. Emptied DEANA drain with 85 mL serosanguenous fluid noted. Provided patient and spouse education on s/s of infection (increased pain, redness, or swelling at site, change in amount or color of drainage, fever over 101.0F that is not alleviated with Tylenol or pain medication with Tylenol combination). They both verbalized understanding and spouse repeated education back.
[2022-06-25 19:34] VITALS: BP 122/69; PULSE 67; RESP 17; TEMP 36.9; O2SAT 93
[2022-06-26] VITALS (8 sets, daily range): BP systolic 100–136; BP diastolic 60–84; PULSE 62–69; RESP 14–18; TEMP 36.6–37.6; O2SAT 91–94
[2022-06-26] MEDS: ketorolac 30 mg/mL INJ IVP ×2 (02:24→08:38)
[2022-06-26 05:39] LABS: Basophils % 0.4 %; Eosinophils # 0.2 10^3/uL (0.0-0.8); Eosinophils % 2.4 %; Hematocrit 32.6 % (42.0-52.0); Hemoglobin 10.6 g/dL (11.7-16.6); Lymphocytes # 1.3 10^3/uL (0.8-4.8); Lymphocytes % 15.4 %; Mean Corpuscular HGB Conc 32.5 g/dL (30.0-36.0); Mean Corpuscular Hemoglobin 30.8 pg (28.0-34.0); Mean Corpuscular Volume 94.8 fl (80-94); Mean Platelet Volume 9.7 fL (7.4-10.4); Monocytes # 0.9 10^3/uL (0.2-0.9); Monocytes % 10.1 %; Neutrophils # 6.05 10^3/uL (1.8-7.7); Neutrophils % 71.1 %; Nucleated Red Blood Cells % 0 %; Platelet Count 247 10^3/cmm (130-400); Red Blood Count 3.44 10^6/uL (4.1-5.3); Red Cell Distribution Width 13.8 % (12.1-15.1); White Blood Count 8.5 10^3/uL (4.0-10.0)
[2022-06-26 05:54] LABS: Magnesium 2.1 mg/dL (1.7-2.3)
[2022-06-26 05:55] LABS: Anion Gap 13.7 (5-19); Blood Urea Nitrogen 19 mg/dL (6-20); Calcium 7.6 mg/dL (8.5-10.5); Carbon Dioxide 22 mmol/L (22-29); Chloride 105 mmol/L (98-107); Glomerular Filtration Rate 87.9 mL/min (90-130); Glucose 114 mg/dL (65-115); Osmolality Calculated 287 mOsm/kg (285-295); Potassium 3.7 mmol/L (3.5-5.1); Sodium 137 mmol/L (136-145)
[2022-06-26] MEDS: sodium chloride 0.9% 1,000 ML 125 ML IV (06:13)
[2022-06-26] MEDS: piperacillin-tazobactam 3.375 GM in sodium chloride 0.9% (plus) 50 ML IV (06:13)
[2022-06-26] MEDS: heparin 5,000 unit/mL INJ 1 mL 5000 UNIT SUBCUT (06:14)
[2022-06-26] MEDS: ondansetron 2 mg/ML SDV 2 mL 4 MG IVP (09:48)
[2022-06-26] MEDS: oxyCODONE-APAP 5-325 mg Tablet 1 TAB PO (17:44)
--- NOTE | 2022-06-26 17:50 | P.DS_ITS ---
Discharge Providers Date of Admission: 06/22/22 23:10 Date of Discharge: June 26, 2022 Attending Provider at Admission: Kyle Benton DO Attending Provider at Discharge: Kyle Benotn DO Diagnoses at Discharge Discharge Diagnosis (1) Mass of cecum: Status: Acute (2) Acute perforated appendicitis: Status: Acute (3) Liver mass: Status: Acute Reason for Visit Reason for Visit: n/v, constipation Hospital Course Hospital Course This is a very pleasant 52-year-old gentleman who presented to the hospital with abdominal pain. He was diagnosed with a cecal mass and acute perforated appendicitis. Imaging also showed a mass in the liver. He underwent an exploratory laparotomy with right hemicolectomy. He did well postoperatively and was discharged home in good condition Physical Exam Narrative: General : Patient is well developed , no acute distress, oriented x3 Head : Normal cephalic, a-traumatic. Ears : Pinnae and external canal are normal. Hearing is normal. Eyes : PERRLA, Sclera and injection are normal. No conjunctival discharge. Nose : Mucous membranes are without erythema. Throat : buccal mucosa is normal, gums are without significant recession or hypertrophy. Lungs : Equal chest rise bilaterally, no use of accessory muscles, trachea is midline. Cor : Rate and rhythm are normal. Abdomen : Soft, ND, appropriately tender,, no g/r/m Incisions intact without erythema or exudate Extremities : No edema, no cyanosis or clubbing, dorsalis pedis pulses are present bilaterally, non-tender to palpation of calves. Upper extremities are normal bilaterally. Back : non-tender to palpation, no CVA tenderness. Neuro : CN II - XII intact, Upper and lower extremities have equal and full strength Urinary Catheter Management: Lee: Cath Placed During This Visit: yes, but has since been removed by the nurse Reason for Continuing Indwelling Catheter: Decision to DC Catheter Urinary Catheter Date of Insertion: 06/23/22 Urinary Catheter Time of Insertion: 09:40 Date Urinary Catheter Removed: 06/25/22 Time Urinary Catheter Discontinued: 17:02 Discharge Data Studies Completed and Pending Completed Studies During Hospitalization Category Date Time Status CT abdomen pelvis w con* [id number] Stat Cat Scan 06/22/22 21:17 Completed CXRP [XR chest 1V portable [id number]] Stat Exams 06/23/22 22:18 Completed XR KUB [id number] Stat Exams 06/22/22 17:47 Completed Pending at discharge Category Date Time Status Pathology: Surgical [PTH] Routine Pth 06/23/22 10:28 Received Radiology Impressions KUB X-Ray 06/22/22 17:47 IMPRESSION: 1. Nonobstructed bowel gas pattern. 2. Increased fecal content in the colon. Abdomen/Pelvis CT 06/22/22 21:17 IMPRESSION: 1. 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 The cecal mass obstructs the appendiceal orifice with resulting marked appendicitis and associated suspicious for perforation of the anterior wall of the appendix at the appendiceal base with an adjacent developing multilobulated abscess in the right lower quadrant. No free intraperitoneal air. 2. Marked secondary inflammation of multiple small bowel loops/mesentery in the right lower quadrant. 3. Hypodense focus in the liver that cannot be further characterized on the current examination. In a low-risk patient, this is most likely to be benign and no further follow-up is recommended. In a high-risk patient, follow-up MRI in 3-6 months is recommended (or earlier if warranted by the patient's specific clinical circumstances). (Reference: Leonila) 4. Incidental/nonacute findings are listed in the report. COMMENTS: Consistent with the [employer]'s Incidental Findings Committee white paper (J Am Shalini Radiol 2018): Any incidental renal lesion less than 1 cm or classified as too small to characterize, or any incidental cystic renal lesion characterized as simple-appearing, is likely benign. No follow-up imaging is recommended for these lesions per consensus recommendations based on imaging criteria. REFERENCES: Leonila GARCIA, et al. Management of Incidental Liver Lesions on CT: A White Paper of the ACR Incidental Findings Committee. J Am Shalini Radiol. 2017;14(11):9731-9116. ADDENDUM: 06/22/22 2242 THIS REPORT CONTAINS FINDINGS THAT MAY BE CRITICAL TO PATIENT CARE. The findings were verbally communicated via telephone conference with VIRI Torres at 10:40 PM CDT on 06/22/2022. The findings were acknowledged and understood. Chest X-Ray 06/23/22 22:18 IMPRESSION: 1. Gastric tube tip in the mid stomach. 2. No acute findings. Laboratory Results WBC 8.5 10^3/uL (4.0-10.0) 06/26/22 05:05 RBC 3.44 10^6/uL (4.1-5.3) L 06/26/22 05:05 Hgb 10.6 g/dL (11.7-16.6) L 06/26/22 05:05 Hct 32.6 % (42.0-52.0) L 06/26/22 05:05 MCV 94.8 fl (80-94) H 06/26/22 05:05 MCH 30.8 pg (28.0-34.0) 06/26/22 05:05 MCHC 32.5 g/dL (30.0-36.0) 06/26/22 05:05 RDW 13.8 % (12.1-15.1) 06/26/22 05:05 Plt Count 247 10^3/cmm (130-400) 06/26/22 05:05 MPV 9.7 fL (7.4-10.4) 06/26/22 05:05 Neut % (Auto) 71.1 % 06/26/22 05:05 Lymph % (Auto) 15.4 % 06/26/22 05:05 [place] % (Auto) 10.1 % 06/26/22 05:05 Eos % (Auto) 2.4 % 06/26/22 05:05 Baso % (Auto) 0.4 % 06/26/22 05:05 Neut # (Auto) 6.05 10^3/uL (1.8-7.7) 06/26/22 05:05 Lymph # (Auto) 1.3 10^3/uL (0.8-4.8) 06/26/22 05:05 [place] # (Auto) 0.9 10^3/uL (0.2-0.9) 06/26/22 05:05 Eos # (Auto) 0.2 10^3/uL (0.0-0.8) 06/26/22 05:05 Baso # (Auto) 0.0 10^3/uL (0.0-0.1) 06/26/22 05:05 Nucleated RBC % (auto) 0 % 06/26/22 05:05 Total Counted 100 (0-100) 06/23/22 05:14 Atypical Lymphs % 0.0 % (0-5) 06/23/22 05:14 Absolute Neutrophils 5.0 10^3/cmm (1.4-6.5) 06/23/22 05:14 Segmented Neutrophils 37 % 06/23/22 05:14 Abs Segm Neuts (Man) 2.6 10/cmm (1.6-7.1) 06/23/22 05:14 Band Neutrophils 36.0 % 06/23/22 05:14 Abs Band Neuts (Man) 2.5 10^3/cmm (0.0-1.2) H 06/23/22 05:14 Absolute Lymphocytes 1.2 10^3/cmm (1.2-3.4) 06/23/22 05:14 Lymphocytes (Manual) 18 % 06/23/22 05:14 Monocytes (Manual) 8.0 % 06/23/22 05:14 Absolute Monocytes 0.6 10^3/cmm (0.1-0.6) 06/23/22 05:14 Eosinophils (Manual) 0 % 06/23/22 05:14 Absolute Eosinophils 0.0 10^3/cmm (0.0-0.7) 06/23/22 05:14 Basophils (Manual) 0.0 % 06/23/22 05:14 Absolute Basophils 0.0 10^3/cmm (0.0-0.2) 06/23/22 05:14 Metamyelocytes 1.0 % 06/23/22 05:14 Nucleated RBCs # 0.0 /100WBC 06/26/22 05:05 Platelet Estimate Normal (Normal) 06/23/22 05:14 Sodium 137 mmol/L (136-145) 06/26/22 05:05 Potassium 3.7 mmol/L (3.5-5.1) 06/26/22 05:05 Chloride 105 mmol/L (98-107) 06/26/22 05:05 Carbon Dioxide 22 mmol/L (22-29) 06/26/22 05:05 Anion Gap 13.7 (5-19) 06/26/22 05:05 BUN 19 mg/dL (6-20) 06/26/22 05:05 Creatinine 0.9 mg/dL (0.7-1.2) 06/26/22 05:05 GFR Calculation 87.9 mL/min (90-130) L 06/26/22 05:05 Glucose 114 mg/dL (65-115) 06/26/22 05:05 Calculated Osmolality 287 mOsm/kg (285-295) 06/26/22 05:05 Lactate 1.6 mmol/L (0.5-2.2) 06/22/22 22:45 Calcium 7.6 mg/dL (8.5-10.5) L 06/26/22 05:05 Magnesium 2.1 mg/dL (1.7-2.3) 06/26/22 05:05 Total Bilirubin 0.5 mg/dL (0.15-1.2) 06/22/22 16:45 AST 13 U/L (0-40) 06/22/22 16:45 ALT 17 U/L (0-41) 06/22/22 16:45 Alkaline Phosphatase 81 U/L (40-130) 06/22/22 16:45 Total Protein 7.7 g/dL (6.6-8.7) 06/22/22 16:45 Albumin 4.4 g/dL (3.5-5.2) 06/22/22 16:45 Globulin 3.3 g/dL (1.3-4.6) 06/22/22 16:45 Lipase 19 U/L (13-60) 06/22/22 16:45 Urine Color Yellow (Yellow) 06/22/22 21:00 Urine Appearance Clear (CLEAR) 06/22/22 21:00 Urine pH 5 (5-7) 06/22/22 21:00 Ur Specific [place] 1.025 (1.005-1.030) 06/22/22 21:00 Urine Protein Neg (Negative) 06/22/22 21:00 Urine Glucose (UA) Norm (Normal) 06/22/22 21:00 Urine Ketones 2+ (Negative) H 06/22/22 21:00 Urine Blood 2+ (Negative) H 06/22/22 21:00 Urine Nitrate Negative (Negative) 06/22/22 21:00 Urine Bilirubin 1+ (Negative) H 06/22/22 21:00 Urine Urobilinogen Norm mg/dL (Negative) 06/22/22 21:00 Ur Leukocyte Esterase Negative (Negative) 06/22/22 21:00 Urine RBC 0-4 /hpf (0-2) H 06/22/22 21:00 Urine WBC 5-10 /hpf (0-5) H 06/22/22 21:00 Ur Squamous Epith Cells 0-4 /hpf (0-5) H 06/22/22 21:00 Amorphous Sediment Not Reportable 06/22/22 21:00 Urine Bacteria Trace /hpf (NONE) 06/22/22 21:00 Urine Mucus 1+ /hpf 06/22/22 21:00 Procedures Performed Exploratory laparotomy with right hemicolectomy Vitals Last Vital Signs Temp 98.1 F 06/26/22 16:00 Pulse 63 06/26/22 16:00 Resp 14 06/26/22 17:44 BP 136/84 06/26/22 16:00 Pulse Ox 92 06/26/22 17:44 O2 Del Method Room Air 06/26/22 16:00 O2 Flow Rate 6 06/23/22 11:10 Discharge Plan Discharge Patient Disposition: Home Condition: Stable Prescriptions: New amoxicillin-pot clavulanate 875-125 mg tablet 1 tab PO BID Qty: 20 0RF oxycodone-acetaminophen 5-325 mg tablet 1 tab PO Q6H PRN (Reason: pain) Qty: 20 0RF DOK 100 mg capsule 100 mg PO BID Qty: 14 0RF Continued simethicone 80 mg Tablet,Chewable 80 mg PO DAILY PRN (Reason: unknown) Discharge Orders: Discharge Order (Routine); Ordered 06/26/22 Ordered By: Kyle Benton Referrals: Kyle Benton DO [Physician] - 2 weeks Lety Devine NP [Referring] - 06/30/22 10:30 am (Please arrive 30 min early to complete paperwork. ) Discharge Diet: Advance as tolerated Discharge Activity: Limit activity as instructed Patient Instructions: Oxycodone/Acetaminophen (By mouth), Amoxicillin/Clavulanate Potassium (By mouth), Appendicitis (GEN), Laparoscopic Appendectomy (GEN), Opioid Safety Activity Restrictions/Additional Instructions: No lifting, pushing or pulling over 15 pounds for 6 weeks. Do not soak incisions underwater for 2 weeks. Shower daily. Discharge Attestations Time Spent in Discharge Care*: less than 30 min Quality Metrics Clinical Quality Measures [ No reported AMI, CVA or VTE this stay] Coding Level of Care Code Acute Code for Chg Fwd Diagnoses Mass of cecum K63.89 Acute perforated appendicitis K35.32 Liver mass R16.0
== END 2022-06-26 19:50 | disposition home or self-care (01) | DRG 329 ==
LOC: ER 22:55 → MEDSURG 23:10
PROVIDERS: Family Medicine; Admitting Provider Surgery; Emergency Provider Emergency Medicine; Visit Provider Surgery
PROC: 0DTF0ZZ Resection of Right Large Intestine, Open Approach (ICD-10-PCS; CPT 49000; principal; 2022-06-23 08:05)
DX: K63.89 Other specified diseases of intestine (principal); K35.33 Acute appendicitis with perforation, localized peritonitis, and gangrene, with abscess; R16.0 Hepatomegaly, not elsewhere classified; K59.00 Constipation, unspecified
CPT/HCPCS: 36415; 51702; 71045; 74018; 74177; 80048; 80053; 81001; 83605; 83690; 83735; 85007; 85025; 88309; 96365; 96372; 96375; 99285; J0131; J0330; J1100; J1170; J1200; J1644; J1885; J2250; J2270; J2370; J2405; J2543; J2704; J2710; J3010; J3490; J7030; P9045; Q9967

== ENCOUNTER 2022-06-29 10:49 | Emergency (ER) | payer SELFPAY ==
[2022-06-29 10:50] VITALS: BP 127/85; PULSE 66; RESP 17; TEMP 36.6; O2SAT 97
--- NOTE | 2022-06-29 11:09 | CT_ITS ---
WS: [id number] CT ABDOMEN PELVIS TECHNIQUE: Contrast-enhanced CT of the abdomen and pelvis with coronal and sagittal reformatted image s. CLINICAL INFORMATION: abd pain COMPARISON: June 22, 2022 DLP: 855.[address] scans at [facility] use at least one of these dose optimization techniques: automated e xposure control; mA and/or kV adjustment per patient size (includes targeted exams where dose is matc hed to clinical indication); or iterative reconstruction. FINDINGS: Interval resection of the irregular cecal mass previously described suspicious for carcinoma. Dilated loops of small and large bowel likely postoperative adynamic ileus with a few air-fluid levels. No e vidence of drainable abscess or fluid collection along the surgical tract or anterior abdomen. Trace RIGHT pleural fluid. Diffuse fatty infiltration liver. Hepatomegaly. Tiny hepatic cyst. Normal portal vein and splenic vein. Normal spleen. Normal GE junction. Adrenal glands are normal. Normal re nal parenchymal enhancement. No hydronephrosis. Normal caliber abdominal aorta.Small amount of free f luid in the cul-de-sac measuring 4.5 x 4.3 cm with peripheral enhancement most likely postoperative. Small RIGHT renal cyst. Normal sigmoid colon. Mild constipation in the transverse colon. Mild diffuse body wall anasarca. CT/CT abdomen pelvis w con* [id number] IMPRESSION: 1. Recent postoperative changes cecal resection. No evidence of drainable absc ess or fluid collection along the surgical tract or anterior abdomen. 2. Adynamic ileus involving small and large bowel with air-fluid levels. Fluid and fecal retention in the transverse colon and LEFT colon. 3. Trace RIGHT pleural fluid. 4. Diffuse fatty infiltration liver with hepatomegaly. 5. Small amount of free fluid in the cul-de-sac measuring 4.5 x 4.3 cm with sl ight peripheral enhancement most likely postoperative. 6. No other acute findings. Notified Dr. Brice Santoyo MD at 06/29/2022 12:49 PM.
--- NOTE | 2022-06-29 11:29 | ECG_ITS ---
[facility] Test Date: 2022-06-29 Pat Name: Roni Salguero Department: Room: Gender: Male Inspector Subassembly: : 1970 Requested By: Jose Ramon Waller Order Number: [id number] Fela MD: Bhavik Pacheco M.D. Measurements Intervals [place] Rate: 66 P: 53 [place]: 175 QRS: 88 QRSD: 149 T: 43 QT: 440 QTc: 463 Interpretive Statements SINUS RHYTHM RIGHT BUNDLE BRANCH BLOCK [120+ ms QRS DURATION, UPRIGHT V1, 40+ ms S IN I/aVL/V4/V5/V6] No previous ECG available for comparison Electronically Signed On 06-29-2022 14:29:37 CDT by Bhavik Pacheco M.D. [email or web address]
[2022-06-29] MEDS: piperacillin-tazobactam 3.375 GM in sodium chloride 0.9% (plus) 50 ML IV (11:38)
[2022-06-29] MEDS: sodium chloride 0.9% 1,000 ML 999 ML IV (11:38)
[2022-06-29 11:39] VITALS: RESP 16
[2022-06-29] MEDS: morphine 4 mg/mL SDV 1 mL IVP (11:39)
[2022-06-29] MEDS: ondansetron 2 mg/ML SDV 2 mL 4 MG IVP (11:39)
[2022-06-29 11:40] LABS: Basophils # 0.1 10^3/uL (0.0-0.1); Basophils % 0.4 %; Eosinophils # 0.1 10^3/uL (0.0-0.8); Eosinophils % 0.8 %; Hemoglobin 12.6 g/dL (11.7-16.6); Lymphocytes % 15.3 %; Mean Corpuscular HGB Conc 33.2 g/dL (30.0-36.0); Mean Corpuscular Hemoglobin 30.5 pg (28.0-34.0); Mean Platelet Volume 9.3 fL (7.4-10.4); Monocytes # 1.2 10^3/uL (0.2-0.9); Neutrophils # 9.48 10^3/uL (1.8-7.7); Neutrophils % 72.7 %; Nucleated Red Blood Cells % 0 %; Platelet Count 387 10^3/cmm (130-400); Red Blood Count 4.13 10^6/uL (4.1-5.3); Red Cell Distribution Width 13.6 % (12.1-15.1)
--- NOTE | 2022-06-29 11:46 | ED_ITS ---
Documented by User: Jose Ramon Randolph DO 07/01/22 08:34 HPI - Wound/Laceration General: Chief Complaint: Wound/Laceration Stated Complaint: post-op/abd pains Time Seen by Provider: 06/29/22 11:09 Source: patient Mode of arrival: ambulatory History of Present Illness: 52-year-old male who presents to the emergency room with complaint of drainage from the midline abdominal incision. He has been mostly sedentary the last few days since his surgery which was 6 days ago. Yesterday he said he started doing some squats and began to notice some drainage from his incision. He thought it had a foul odor to it he denies any fever sweats or chills. Patient had a perforated appendix ultimately ended up with a right hemicolectomy. Dr. Benton had contacted me this morning that the patient was in route. On arrival here he has serosanguineous drainage on the bandage on the lower portion of his wound. Can express some serosanguineous drainage as well. There is some mild localized incisional redness. No frankly purulent drainage. Onset (ago): minute(s) Location: abdomen (Incisional drainage) Place: home Associated symptoms: Denies chills, fever(s), nausea or vomiting Review of Systems Const: Denies: fever(s), chills, body aches, change in appetite, fatigue or malaise ENMT: Denies: throat pain, ear or mastoid pain, nasal discharge or nasal congestion Card: Denies: chest pain, edema, dyspnea on exertion or orthopnea Resp: Denies: dyspnea, productive cough or non-productive cough GI: Denies: abdominal pain, nausea, vomiting, hematemesis, coffee ground emesis, diarrhea, constipation, bloating, hematochezia or melena : Denies: flank pain, dysuria, urinary frequency or urinary urgency Skin/Breast: Denies: rash or pruritus PFSH ED PFSH: Medical History Mass of cecum No pertinent past medical history Social History Substance/Drug Use: never Physical Exam Const: GENERAL APPEARANCE: cooperative and comfortable ORIENTATION/CONSCIOUSNESS: Yes awake, Yes oriented to person, Yes oriented to place and Yes oriented to time HENMT: COMMON NORMALS: normocephalic, atraumatic and hearing grossly normal bilaterally HEAD & SCALP: normocephalic and atraumatic Resp: COMMON NORMALS: normal respiratory effort, No retractions, No use of accessory muscles and clear to auscultation bilaterally AUSCULTATION: clear to auscultation bilaterally Cardio: COMMON NORMALS: regular rate, regular rhythm and No murmurs present (Cardio) RATE: regular rate RHYTHM: regular rhythm GI: COMMON NORMALS: Soft to palpation and No hepatosplenomegaly present AUSCULTATION: Yes normoactive bowel sounds PALPATION: Yes Soft to palpation, No Tenderness to palpation present (GI), No Guarding due to palpation present (GI) and Yes No hepatosplenomegaly present OTHER: Midline incision stapled mild patchy redness no significant inflammation does not warm to the touch. Infraumbilical I can express some serosanguineous fluid no frankly purulent drainage. Extremity: COMMON NORMALS: normal to inspection, capillary refill normal, no clubbing, cyanosis or edema, no calf tenderness and no pedal edema Neuro: SENSORIUM/ORIENTATION: Yes oriented to person, Yes oriented to place and Yes oriented to time Skin: COMMON NORMALS: no rashes or lesions noted GENERAL SKIN EXAM: no rashes or lesions noted Course Vital Signs: Vital signs: Vital Signs Temperature 97.9 F 06/29/22 10:50 Pulse Rate 68 06/29/22 14:24 Respiratory Rate 16 06/29/22 14:24 Blood Pressure 141/86 06/29/22 14:24 Pulse Oximetry 93 06/29/22 14:24 Oxygen Delivery Ak thod Room Air 06/29/22 10:50 MDM - Wound/Laceration Medical Decision Making Care signed out to Dr. Santoyo at change of shift. See final notes for diagnosis and disposition. 52-year-old male checked out to me by the previous physician at shift change. This gentleman had some drainage from his abdominal incision. His vitals are good. He is afebrile. White blood cell count is 13. BMP is not remarkable. Liver enzymes are not remarkable. CT of the belly shows postoperative changes from cecal resection. There is no evidence of drainable abscess or fluid collection along the surgical tract or anterior abdomen. There is an ileus present with some air-fluid levels. Small amount of free fluid in the cul-de-sac is postoperative change. No evidence of deep infection. Spoke with the patient's surgeon. He will come by the ER and see him and will repack his dressing, and have him follow-up with surgery clinic. The patient is already on antibiotics. Lab Data 06/29/22 11:12 06/29/22 11:12 Radiology Impressions Abdomen/Pelvis CT 06/29/22 11:09 IMPRESSION: 1. Recent postoperative changes cecal resection. No evidence of drainable abscess or fluid collection along the surgical tract or anterior abdomen. 2. Adynamic ileus involving small and large bowel with air-fluid levels. Fluid and fecal retention in the transverse colon and LEFT colon. 3. Trace RIGHT pleural fluid. 4. Diffuse fatty infiltration liver with hepatomegaly. 5. Small amount of free fluid in the cul-de-sac measuring 4.5 x 4.3 cm with slight peripheral enhancement most likely postoperative. 6. No other acute findings. Notified Dr. Brice Santoyo MD at 06/29/2022 12:49 PM. Laboratory Results WBC 13.0 10^3/uL (4.0-10.0) H 06/29/22 11:12 RBC 4.13 10^6/uL (4.1-5.3) 06/29/22 11:12 Hgb 12.6 g/dL (11.7-16.6) 06/29/22 11:12 Hct 38.0 % (42.0-52.0) L 06/29/22 11:12 MCV 92.0 fl (80-94) 06/29/22 11:12 MCH 30.5 pg (28.0-34.0) 06/29/22 11:12 MCHC 33.2 g/dL (30.0-36.0) 06/29/22 11:12 RDW 13.6 % (12.1-15.1) 06/29/22 11:12 Plt Count 387 10^3/cmm (130-400) 06/29/22 11:12 MPV 9.3 fL (7.4-10.4) 06/29/22 11:12 Neut % (Auto) 72.7 % 06/29/22 11:12 Lymph % (Auto) 15.3 % 06/29/22 11:12 [place] % (Auto) 9.0 % 06/29/22 11:12 Eos % (Auto) 0.8 % 06/29/22 11:12 Baso % (Auto) 0.4 % 06/29/22 11:12 Neut # (Auto) 9.48 10^3/uL (1.8-7.7) H 06/29/22 11:12 Lymph # (Auto) 2.0 10^3/uL (0.8-4.8) 06/29/22 11:12 [place] # (Auto) 1.2 10^3/uL (0.2-0.9) H 06/29/22 11:12 Eos # (Auto) 0.1 10^3/uL (0.0-0.8) 06/29/22 11:12 Baso # (Auto) 0.1 10^3/uL (0.0-0.1) 06/29/22 11:12 Nucleated RBC % (auto) 0 % 06/29/22 11:12 Nucleated RBCs # 0.0 /100WBC 06/29/22 11:12 Sodium 134 mmol/L (136-145) L 06/29/22 11:12 Potassium 3.7 mmol/L (3.5-5.1) 06/29/22 11:12 Chloride 97 mmol/L (98-107) L 06/29/22 11:12 Carbon Dioxide 25 mmol/L (22-29) 06/29/22 11:12 Anion Gap 15.7 (5-19) 06/29/22 11:12 BUN 9 mg/dL (6-20) 06/29/22 11:12 Creatinine 0.7 mg/dL (0.7-1.2) 06/29/22 11:12 GFR Calculation 117.5 mL/min (90-130) 06/29/22 11:12 Glucose 93 mg/dL (65-115) 06/29/22 11:12 Calculated Osmolality 276 mOsm/kg (285-295) L 06/29/22 11:12 Calcium 8.0 mg/dL (8.5-10.5) L 06/29/22 11:12 Total Bilirubin 0.2 mg/dL (0.15-1.2) 06/29/22 11:12 AST 35 U/L (0-40) 06/29/22 11:12 ALT 57 U/L (0-41) H 06/29/22 11:12 Alkaline Phosphatase 82 U/L (40-130) 06/29/22 11:12 Total Protein 6.0 g/dL (6.6-8.7) L 06/29/22 11:12 Albumin 3.0 g/dL (3.5-5.2) L 06/29/22 11:12 Globulin 3.0 g/dL (1.3-4.6) 06/29/22 11:12 Lipase 24 U/L (13-60) 06/29/22 11:12 Discharge Plan Discharge Patient Disposition: Home Clinical Impression: Postoperative seroma, Ileus, postoperative Condition: Stable Prescriptions: No Action multivitamin Tablet 1 tab PO DAILY MSM 1,000 mg Capsule 1,000 mg PO DAILY Fish Oil Concentrate 1,000 mg Capsule 1,000 mg PO DAILY Glucosamine Chondroitin 550-30-1 mg Capsule 2 cap PO DAILY Beet Root Caps 1 cap PO DAILY Pre Workout Powder See Rx Instructions .ROUTE .COMPLEX Rx Instructions: as directed as needed simethicone 80 mg Tablet,Chewable 80 - 160 mg PO DAILY PRN (Reason: unknown) amoxicillin-pot clavulanate 875-125 mg tablet 1 tab PO BID Qty: 20 0RF Rx Instructions: for 10 days (rx filled 06/26/22) oxycodone-acetaminophen 5-325 mg tablet 1 tab PO Q6H PRN (Reason: pain) Qty: 20 0RF docusate sodium [DOK] 100 mg capsule 100 mg PO BID Qty: 14 0RF Discharge Orders: Discharge ED (Routine); Ordered 06/29/22 Ordered By: Brice Santoyo Patient Instructions: Ileus (ED), Seroma (DC), Opioid Safety, Pain Management Activity Restrictions/Additional Instructions: Continue your antibiotics. No lifting greater than 10 pounds until cleared by surgery. Return for fever greater than 100, worsening pain. Dressing changes as per your surgeon's instructions. Follow-up with surgery clinic as directed. Coding Level of Care Code ED Laser Beam Trim Operator for Chg Fwd Documented by User: Brice Santoyo DO 06/29/22 22:37 HPI - Wound/Laceration General: Chief Complaint: Wound/Laceration Stated Complaint: post-op/abd pains Time Seen by Provider: 06/29/22 11:09 [facility] PFSH: Medical History Mass of cecum No pertinent past medical history Social History Substance/Drug Use: never Course Vital Signs: Vital signs: Vital Signs Temperature 97.9 F 06/29/22 10:50 Pulse Rate 68 06/29/22 14:24 Respiratory Rate 16 06/29/22 14:24 Blood Pressure 141/86 06/29/22 14:24 Pulse Oximetry 93 06/29/22 14:24 Oxygen Delivery Me thod Room Air 06/29/22 10:50 MDM - Wound/Laceration Medical Decision Making 52-year-old male checked out to me by the previous physician at shift change. This gentleman had some drainage from his abdominal incision. His vitals are good. He is afebrile. White blood cell count is 13. BMP is not remarkable. Liver enzymes are not remarkable. CT of the belly shows postoperative changes from cecal resection. There is no evidence of drainable abscess or fluid collection along the surgical tract or anterior abdomen. There is an ileus present with some air-fluid levels. Small amount of free fluid in the cul-de-sac is postoperative change. No evidence of deep infection. Spoke with the patient's surgeon. He will come by the ER and see him and will repack his dressing, and have him follow-up with surgery clinic. The patient is already on antibiotics. Lab Data 06/29/22 11:12 06/29/22 11:12 Radiology Impressions Abdomen/Pelvis CT 06/29/22 11:09 IMPRESSION: 1. Recent postoperative changes cecal resection. No evidence of drainable abscess or fluid collection along the surgical tract or anterior abdomen. 2. Adynamic ileus involving small and large bowel with air-fluid levels. Fluid and fecal retention in the transverse colon and LEFT colon. 3. Trace RIGHT pleural fluid. 4. Diffuse fatty infiltration liver with hepatomegaly. 5. Small amount of free fluid in the cul-de-sac measuring 4.5 x 4.3 cm with slight peripheral enhancement most likely postoperative. 6. No other acute findings. Notified Dr. Brice Santoyo MD at 06/29/2022 12:49 PM. Laboratory Results WBC 13.0 10^3/uL (4.0-10.0) H 06/29/22 11:12 RBC 4.13 10^6/uL (4.1-5.3) 06/29/22 11:12 Hgb 12.6 g/dL (11.7-16.6) 06/29/22 11:12 Hct 38.0 % (42.0-52.0) L 06/29/22 11:12 MCV 92.0 fl (80-94) 06/29/22 11:12 MCH 30.5 pg (28.0-34.0) 06/29/22 11:12 MCHC 33.2 g/dL (30.0-36.0) 06/29/22 11:12 RDW 13.6 % (12.1-15.1) 06/29/22 11:12 Plt Count 387 10^3/cmm (130-400) 06/29/22 11:12 MPV 9.3 fL (7.4-10.4) 06/29/22 11:12 Neut % (Auto) 72.7 % 06/29/22 11:12 Lymph % (Auto) 15.3 % 06/29/22 11:12 [place] % (Auto) 9.0 % 06/29/22 11:12 Eos % (Auto) 0.8 % 06/29/22 11:12 Baso % (Auto) 0.4 % 06/29/22 11:12 Neut # (Auto) 9.48 10^3/uL (1.8-7.7) H 06/29/22 11:12 Lymph # (Auto) 2.0 10^3/uL (0.8-4.8) 06/29/22 11:12 [place] # (Auto) 1.2 10^3/uL (0.2-0.9) H 06/29/22 11:12 Eos # (Auto) 0.1 10^3/uL (0.0-0.8) 06/29/22 11:12 Baso # (Auto) 0.1 10^3/uL (0.0-0.1) 06/29/22 11:12 Nucleated RBC % (auto) 0 % 06/29/22 11:12 Nucleated RBCs # 0.0 /100WBC 06/29/22 11:12 Sodium 134 mmol/L (136-145) L 06/29/22 11:12 Potassium 3.7 mmol/L (3.5-5.1) 06/29/22 11:12 Chloride 97 mmol/L (98-107) L 06/29/22 11:12 Carbon Dioxide 25 mmol/L (22-29) 06/29/22 11:12 Anion Gap 15.7 (5-19) 06/29/22 11:12 BUN 9 mg/dL (6-20) 06/29/22 11:12 Creatinine 0.7 mg/dL (0.7-1.2) 06/29/22 11:12 GFR Calculation 117.5 mL/min (90-130) 06/29/22 11:12 Glucose 93 mg/dL (65-115) 06/29/22 11:12 Calculated Osmolality 276 mOsm/kg (285-295) L 06/29/22 11:12 Calcium 8.0 mg/dL (8.5-10.5) L 06/29/22 11:12 Total Bilirubin 0.2 mg/dL (0.15-1.2) 06/29/22 11:12 AST 35 U/L (0-40) 06/29/22 11:12 ALT 57 U/L (0-41) H 06/29/22 11:12 Alkaline Phosphatase 82 U/L (40-130) 06/29/22 11:12 Total Protein 6.0 g/dL (6.6-8.7) L 06/29/22 11:12 Albumin 3.0 g/dL (3.5-5.2) L 06/29/22 11:12 Globulin 3.0 g/dL (1.3-4.6) 06/29/22 11:12 Lipase 24 U/L (13-60) 06/29/22 11:12 Discharge Plan Discharge Patient Disposition: Home Clinical Impression: Postoperative seroma, Ileus, postoperative Condition: Stable Prescriptions: No Action multivitamin Tablet 1 tab PO DAILY MSM 1,000 mg Capsule 1,000 mg PO DAILY Fish Oil Concentrate 1,000 mg Capsule 1,000 mg PO DAILY Glucosamine Chondroitin 550-30-1 mg Capsule 2 cap PO DAILY Beet Root Caps 1 cap PO DAILY Pre Workout Powder See Rx Instructions .ROUTE .COMPLEX Rx Instructions: as directed as needed simethicone 80 mg Tablet,Chewable 80 - 160 mg PO DAILY PRN (Reason: unknown) amoxicillin-pot clavulanate 875-125 mg tablet 1 tab PO BID Qty: 20 0RF Rx Instructions: for 10 days (rx filled 06/26/22) oxycodone-acetaminophen 5-325 mg tablet 1 tab PO Q6H PRN (Reason: pain) Qty: 20 0RF docusate sodium [DOK] 100 mg capsule 100 mg PO BID Qty: 14 0RF Discharge Orders: Discharge ED (Routine); Ordered 06/29/22 Ordered By: Brice Santoyo Patient Instructions: Ileus (ED), Seroma (DC), Opioid Safety, Pain Management Activity Restrictions/Additional Instructions: Continue your antibiotics. No lifting greater than 10 pounds until cleared by surgery. Return for fever greater than 100, worsening pain. Dressing changes as per your surgeon's instructions. Follow-up with surgery clinic as directed. Coding Level of Care Code ED Laser Beam Trim Operator for Britton Ceron
[2022-06-29 11:58] LABS: Alanine Aminotransferase 57 U/L (0-41); Alkaline Phosphatase 82 U/L (40-130); Anion Gap 15.7 (5-19); Aspartate Amino Transferase 35 U/L (0-40); Blood Urea Nitrogen 9 mg/dL (6-20); Carbon Dioxide 25 mmol/L (22-29); Chloride 97 mmol/L (98-107); Glomerular Filtration Rate 117.5 mL/min (90-130); Glucose 93 mg/dL (65-115); Lipase 24 U/L (13-60); Osmolality Calculated 276 mOsm/kg (285-295); Potassium 3.7 mmol/L (3.5-5.1); Sodium 134 mmol/L (136-145); Total Bilirubin 0.2 mg/dL (0.15-1.2)
[2022-06-29] MEDS: iohexol 350 mg/mL 500 mL Btl (per mL) IV (12:21)
[2022-06-29 14:24] VITALS: BP 141/86; PULSE 68; RESP 16; O2SAT 93
--- NOTE | 2022-07-03 12:02 | DCPLANNER ---
network account manager called patient due to no primary care provider - patient declines at this time.
== END 2022-06-29 14:29 | disposition home or self-care (01) ==
PROVIDERS: Family Medicine; Emergency Provider Emergency Medicine
DX: L76.34 Postprocedural seroma of skin and subcutaneous tissue following other procedure (principal); K91.89 Other postprocedural complications and disorders of digestive system; K56.7 Ileus, unspecified; Y83.8 Other surgical procedures as the cause of abnormal reaction of the patient, or of later complication, without mention of misadventure at the time of the procedure
CPT/HCPCS: 36415; 74177; 80053; 83690; 85025; 87040; 93005; 96374; 96375; 99285; J2270; J2405; J2543; J7030; Q9967

== ENCOUNTER 2022-07-31 08:50 | Outpatient (CLI) | payer SELFPAY ==
--- NOTE | 2022-07-31 09:30 | MR_ITS ---
WS: [id number] MRI ABDOMEN without CONTRAST. COMPARISON: CT abdomen and pelvis 06/29/2022 and 06/22/2022 Multiplanar, multisequence imaging is performed without contrast. History: Recent surgery for colon carcinoma. Resection of a cecal mass. Mild hepatic steatosis. There is a simple 6 mm cyst RIGHT hepatic lobe. Portal vein appears patent. T his study was done without IV contrast. Gallbladder is slightly contracted but normal. Normal spleen and pancreas. No adrenal mass identified. Kidneys are normal size. No bulging masses or change in sig nal. There is a simple cyst posterior mid RIGHT kidney measuring 10 mm. No pleural effusion. Visualized heart is normal. There is a large amount of retained food products within the stomach. There is also significant colon ic fecal retention through the portions of the colon visualized to the abdomen. No obstructive patter n. The small bowel is negative. Postsurgical changes are noted along the anterior abdominal wall and healing appropriately. No fluid collection or abscess. MR/MR abdomen wo con [id number] IMPRESSION: 1. MRI abdomen performed without IV contrast. Noncontrast evaluation decreases sensitivity for small metastatic lesions. 2. Simple RIGHT hepatic cyst measures 6 mm. Described on prior CT evaluations. 3. Simple RIGHT renal cyst 10 mm. 4. Large amount of food products within the stomach and the visualized colon t hrough the abdomen. No obstructive pattern. 5. No ascites or adenopathy. No adrenal mass.
== END 2022-07-31 08:51 | disposition home or self-care (01) ==
LOC: RAD 08:52
PROVIDERS: Visit Provider Internal Medicine Hematology & Oncology
DX: K76.89 Other specified diseases of liver (principal); N28.1 Cyst of kidney, acquired; R16.0 Hepatomegaly, not elsewhere classified
CPT/HCPCS: 74181

== ENCOUNTER 2022-09-03 09:43 | Day surgery (SDC) | payer SELFPAY ==
[2022-09-02 13:44] VITALS: BMI 25.9
[2022-09-03] VITALS (7 sets, daily range): BP systolic 112–135; BP diastolic 66–90; PULSE 70–80; RESP 16–70; TEMP 36.1–36.6; O2SAT 98–100
--- NOTE | 2022-09-03 10:03 | SC_ITS ---
WS: [id number] Exam: C-arm FL for CVA [id number] Date/Time of Exam: 09/03/2022 10:03 AM Reason For Exam: Mediport placement Limited AP C-arm images of the left chest are submitted. A left subclavian port has been placed and a ppears to extend into the lower one third of the SVC. Images obtained for intraoperative visualizatio n.
--- NOTE | 2022-09-03 10:03 | XR_ITS ---
WS: [id number] Exam: XR chest 1V portable [id number] Date/Time of Exam: 09/03/2022 10:03 AM Reason For Exam: Postop Mediport placement Comparison 06/23/2022. The lungs are fully expanded and clear. Normal cardiomediastinal structures. Bony elements are intact . Left subclavian port ends in the lower one third of the SVC in good position. XR/XR chest 1V portable [id number] IMPRESSION: 1. No acute cardiopulmonary finding. 2. Left subclavian port ends in the lower one third of the SVC.
--- NOTE | 2022-09-03 10:28 | P.ANESASSM_ITS ---
Pre-Anesthetic Assessment Height/Weight: Height 1.91 m Weight 93.894 kg Temp Pulse Resp BP Pulse Ox O2 Del Method 97.9 F 73 16 135/77 100 Room Air 09/03/22 10:07 09/03/22 10:07 09/03/22 10:07 09/03/22 10:07 09/03/22 10:07 09/03/22 10:09 Operation Date: 09/03/22 11:35 Proposed Procedures p Portacath Placement 45334, C18.9(Not Applicable) - Kyle Benton DO Familial anesthetic complications: None Was Beta Sandeep taken within 24 hours: N/A Was Clonidine taken within 24 hours: N/A Last intake: Intake Last Liquid Date 09/02/22 Last Liquid Time 21:00 Last Solid Date 09/02/22 Last Solid Time 21:00 Social Tobacco (occassional) and No alcohol Exam alert, oriented x 3, clear to auscultation bilaterally and regular rate & rhythm Airway Mallampati: Class II Dentition: other (no teeth) Anesthetic Plan ASA status: 3 Anesthesia: MAC Risk of > 500 ml blood loss (7ml/kg in children): No Medications/Allergies Home Medications Medication Instructions Recorded Confirmed Last Taken Type Beet Root Caps 1 cap PO DAILY 06/29/22 09/02/22 09/02/22 History Pre Workout Powder See Rx Instructions .Route .COMPLEX 06/29/22 09/01/22 Unknown History glucosamine sulf dipot 2 cap PO DAILY 06/29/22 09/02/22 09/02/22 History chlr,msm,chond 550 mg-C 30 mg-avani 1 mg capsule (Glucosamine Chondroitin) methylsulfonylmethane 1,000 mg 1,000 mg PO DAILY 06/29/22 09/02/22 09/02/22 History capsule (MSM) multivitamin 1 tab PO DAILY 06/29/22 09/02/22 09/02/22 History omega-3 fatty acids 1,000 mg 1,000 mg PO DAILY 06/29/22 09/02/22 09/01/22 History capsule cholecalciferol (vitamin D3) 25 25 mcg PO DAILY 07/16/22 09/02/22 09/02/22 History mcg (1,000 unit) capsule lactobacillus combination no.9 4 4,000 mmu cells PO DAILY PRN Wound 07/16/22 09/02/2223 History billion cell capsule (Adult 50 Healing Plus Probiotic) Allergies Allergy/AdvReac Type Severity Reaction Status Date / Time No Known Allergies Allergy Verified 09/01/22 09:43 [facility] Anesthesia Medical History (Updated 09/01/22 @ 10:03 by Kyle Benton DO) ADHD Mass of cecum No pertinent past medical history Surgical History History of laparoscopic appendectomy Social History Smoking and tobacco status: former smoker Alcohol intake: current Alcohol intake frequency: holidays/special occasions only Substance/Drug Use: never Data Anesthesia Cardiac Studies: No Data to Display
[2022-09-03] MEDS: sodium chloride 0.9% 1,000 ML 30 ML IV (10:37)
--- NOTE | 2022-09-03 11:06 | W.PM.OPSUD ---
Surgery/Procedure H&P Update DATE OF PROCEDURE: September 03, 2022 DATE H&P PERFORMED: 09/01/22 H&P UPDATE INFORMATION: I have reviewed H&P completed within last 30 days, I have examined patient prior to procedure and No changes to prior documentation PLANNED PROCEDURE: Operation Date: 09/03/22 11:35 Proposed Procedures p Portacath Placement 65386, C18.9(Not Applicable) - Kyle Benton DO
[2022-09-03] MEDS: ceFAZolin 2,000 MG in sodium chloride 0.9% (plus) 50 ML 100 MG IV (11:47)
[2022-09-03] MEDS: heparin, porcine 1,000 unit/mL INJ 10 mL 10000 UNIT IRRIGATION (12:06)
[2022-09-03] MEDS: sodium chloride 0.9% 100 mL Bag XX (12:06)
[2022-09-03] MEDS: lidocaine-epi 2% 20 mL INJ INJECTION (12:07)
--- NOTE | 2022-09-03 12:37 | PM.OP ---
Operative Report Date of procedure: September 03, 2022 Pre-op diagnosis: Colon cancer Post-op diagnosis: same Procedure done: Mediport placement Implants: PowerPort Specimens removed/disposition: None Surgeon: Dr. Kyle Benton, DO Anesthesia: MAC Estimated blood loss (mL): 5 Complications: None apparent Brief History: This is a very pleasant 52-year-old gentleman who was found to have colon cancer. Oncology requested Mediport placement for chemotherapy infusion. The risk and benefits were explained and documented. Procedure: They put another order I will do right now things the patient was taken to the operating room and placed supine on the operating room table. All bony prominences were padded. She was given IV sedation and monitored throughout the case by the anesthesia personnel. SCDs were placed and turned on. The arms were tucked to the side. Patient received Ancef 2 g preoperatively IV. The bilateral chest wall was prepped and draped in usual sterile fashion using chlorhexidine base prep. Sterile drapes were applied. We did procedure pause prior to beginning. An 18 gauge needle was placed in the left subclavian vein. Dark, nonpulsatile blood was aspirated. A guidewire was placed through the needle centrally toward the atrial/vena caval junction. Fluoroscopy visualized good placement. The needle was removed and the guidewire was clipped to the drape with a hemostat. Further local anesthetic was infiltrated in the soft tissues of the left chest wall and a #15 blade was used to make a horizontal skin incision. A subcutaneous Mediport pocket was created using Bovie cautery, dissecting down through the skin and subcutaneous tissues. Meticulous hemostasis was achieved. The Mediport was sutured in position using 3-0 vicryl suture x2 stitches. A #15 blade was used to make a small skin david around the guidewire insertion area. The Mediport tubing was tunneled through the subcutaneous tissues up to the needle insertion location. A dilator with a peel-away sheath was placed over the guidewire and placed centrally. After measuring the Mediport tubing was cut to length so that the tip would end at the atrial/vena caval junction. The inner cannula and the guidewire were removed, leaving the dilator sheath in place. The Mediport was flushed. The tip of the catheter was inserted through the peel-away sheath and the peel-away sheath removed in the standard fashion. The Mediport was accessed with a straight Beebe needle and dark, nonpulsatile blood was aspirated and flushed using heparinized saline to hep-lock the Mediport. Final fluoroscopy visualization showed no kink in the catheter and the tip of the Mediport tubing near the atrial/vena caval junction. Both skin incisions were thoroughly irrigated and suctioned dry. Meticulous hemostasis noted. The dermis was approximated with 3-0 Vicryl in an interrupted fashion. Skin was closed with Dermabond. Patient was awakened from anesthesia and transferred via her cart to the recovery room in stable condition. All needle, sponge, and instrument counts were correct per the operating personnel x2 counts.
--- NOTE | 2022-09-03 14:16 | ANE.PACU2 ---
Inpatient post-anesthesia follow up: Airway intact: Yes Vital signs: Temperature 97.9 F Pulse Rate 70 Respiratory Rate 70 Blood Pressure 121/80 Pulse Oximetry 100 Oxygen Delivery Me thod Room Air Oxygen Flow Rate 6 Fraction of Inspir ed Oxygen Hydration adequate: Yes Nausea and vomiting: No Pain level: 1 Mental status: Baseline
== END 2022-09-03 13:15 | disposition home or self-care (01) ==
PROVIDERS: Visit Provider Surgery
PROC: (CPT 36561; principal; 2022-09-03 11:15)
DX: C18.9 Malignant neoplasm of colon, unspecified (principal); F17.200 Nicotine dependence, unspecified, uncomplicated; I25.10 Atherosclerotic heart disease of native coronary artery without angina pectoris
CPT/HCPCS: 36561; 71045; 76000; 77001; C1788; J0690; J1644; J2250; J2704; J3010; J7030

== ENCOUNTER 2022-09-21 09:30 | Oncology outpatient (recurring) (ONCR) | payer SELFPAY ==
[2022-09-14 08:02] VITALS: BP 122/81; PULSE 84; RESP 18; TEMP 36.9; O2SAT 98
[2022-09-14 08:14] LABS: Basophils # 0.1 10^3/uL (0.0-0.1); Basophils % 0.8 %; Eosinophils # 0.2 10^3/uL (0.0-0.8); Eosinophils % 2.7 %; Hematocrit 43.5 % (42.0-52.0); Lymphocytes # 2.9 10^3/uL (0.8-4.8); Lymphocytes % 39.1 %; Mean Corpuscular HGB Conc 32.2 g/dL (30.0-36.0); Mean Corpuscular Hemoglobin 29.7 pg (28.0-34.0); Mean Corpuscular Volume 92.4 fl (80-94); Monocytes # 0.7 10^3/uL (0.2-0.9); Neutrophils # 3.53 10^3/uL (1.8-7.7); Neutrophils % 48.3 %; Nucleated Red Blood Cells % 0 %; Platelet Count 238 10^3/cmm (130-400); Red Blood Count 4.71 10^6/uL (4.1-5.3); Red Cell Distribution Width 14.6 % (12.1-15.1); White Blood Count 7.3 10^3/uL (4.0-10.0)
[2022-09-14 08:58] LABS: Alanine Aminotransferase 18 U/L (0-41); Albumin Level 4.2 g/dL (3.5-5.2); Alkaline Phosphatase 74 U/L (40-130); Anion Gap 14.5 (5-19); Aspartate Amino Transferase 17 U/L (0-40); Blood Urea Nitrogen 12 mg/dL (6-20); Calcium 8.9 mg/dL (8.5-10.5); Carbon Dioxide 25 mmol/L (22-29); Chloride 106 mmol/L (98-107); Globulin 2.8 g/dL (1.3-4.6); Glomerular Filtration Rate 87.9 mL/min (90-130); Glucose 101 mg/dL (65-115); Osmolality Calculated 292 mOsm/kg (285-295); Potassium 4.5 mmol/L (3.5-5.1); Sodium 141 mmol/L (136-145); Total Bilirubin 0.3 mg/dL (0.15-1.2)
[2022-09-14 10:59] VITALS: BP 138/82; PULSE 73; RESP 16; TEMP 37.2; O2SAT 97
[2022-09-14] MEDS: dextrose 5% 250 ML 75 ML IV (11:16)
[2022-09-14] MEDS: palonosetron 0.25 mg/5 mL SDV IVP (11:16)
[2022-09-14] MEDS: OXALIPLATIN IV (11:49)
[2022-09-14] MEDS: leucovorin 910 MG in dextrose 5% 250 ML 62.5 MG IV (11:49)
[2022-09-14] MEDS: DEXTROSE 5% IV (11:49)
[2022-09-14] MEDS: fluorouraciL 50 mg/ml MDV 100 mL 900 MG IVP (17:04)
[2022-09-14] MEDS: fluorouraciL 5,450 MG, elastomeric pump 1 PUMP in sodium chloride 0.9% (100 ml) 121 ML IV (17:05)
[2022-09-14 17:13] VITALS: BP 114/65; PULSE 76; RESP 17; TEMP 36.7; O2SAT 94
[2022-09-16 12:50] VITALS: BP 116/73; PULSE 80; RESP 16; TEMP 36.8; O2SAT 94
[2022-09-21 09:56] VITALS: BP 127/87; PULSE 70; RESP 18; TEMP 37; O2SAT 99
[2022-09-21 10:08] LABS: Basophils # 0.1 10^3/uL (0.0-0.1); Basophils % 1.1 %; Eosinophils # 0.2 10^3/uL (0.0-0.8); Eosinophils % 4.3 %; Hematocrit 41.4 % (42.0-52.0); Hemoglobin 13.5 g/dL (11.7-16.6); Lymphocytes # 2.6 10^3/uL (0.8-4.8); Lymphocytes % 48.7 %; Mean Corpuscular HGB Conc 32.6 g/dL (30.0-36.0); Mean Corpuscular Hemoglobin 29.9 pg (28.0-34.0); Mean Corpuscular Volume 91.8 fl (80-94); Monocytes # 0.5 10^3/uL (0.2-0.9); Monocytes % 8.6 %; Neutrophils # 1.98 10^3/uL (1.8-7.7); Neutrophils % 37.3 %; Nucleated Red Blood Cells % 0 %; Platelet Count 179 10^3/cmm (130-400); Red Blood Count 4.51 10^6/uL (4.1-5.3); Red Cell Distribution Width 13.8 % (12.1-15.1); White Blood Count 5.3 10^3/uL (4.0-10.0)
[2022-09-21 10:27] LABS: Alanine Aminotransferase 12 U/L (0-41); Alkaline Phosphatase 65 U/L (40-130); Anion Gap 13.4 (5-19); Aspartate Amino Transferase 13 U/L (0-40); Blood Urea Nitrogen 14 mg/dL (6-20); Calcium 8.7 mg/dL (8.5-10.5); Carbon Dioxide 25 mmol/L (22-29); Chloride 105 mmol/L (98-107); Globulin 2.5 g/dL (1.3-4.6); Glomerular Filtration Rate 100.7 mL/min (90-130); Glucose 104 mg/dL (65-115); Osmolality Calculated 289 mOsm/kg (285-295); Potassium 4.4 mmol/L (3.5-5.1); Sodium 139 mmol/L (136-145); Total Bilirubin 0.2 mg/dL (0.15-1.2); Total Protein 6.5 g/dL (6.6-8.7)
== END 2022-10-05 23:59 | disposition home or self-care (01) ==
PROVIDERS: Nurse Practitioner Family; PCP Nurse Practitioner Family; Visit Provider Internal Medicine Hematology & Oncology
DX: C18.9 Malignant neoplasm of colon, unspecified (principal)
CPT/HCPCS: 36591; 80053; 82378; 85025; 96367; 96375; 96413; 96415; 96416; 96523; J0640; J1100; J1642; J2469; J7060; J9190; J9263

== ENCOUNTER 2022-10-27 10:15 | Oncology outpatient (recurring) (ONCR) | payer SELFPAY ==
[2022-10-27 10:52] VITALS: BP 109/78; PULSE 73; RESP 18; TEMP 36.8; O2SAT 95
== END 2022-11-05 23:59 | disposition home or self-care (01) ==
PROVIDERS: PCP Nurse Practitioner Family; Visit Provider Internal Medicine Hematology & Oncology
DX: Z45.2 Encounter for adjustment and management of vascular access device (principal)
CPT/HCPCS: 96523; J1642